=== PATIENT | male | born 1985 | race Caucasian/White ===

== ENCOUNTER 2017-11-08 21:38 | Emergency (ER) | payer OTHER ==
[2017-11-08 21:48] VITALS: TEMP 98.3
[2017-11-08] MEDS ORDERED: SODIUM CHLORIDE 0.9% 1,000 ML IV STA (22:38)
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
[2017-11-09 09:21] VITALS: BP 126/62; PULSE 117; RESP 18
== END 2017-11-09 09:20 | disposition home or self-care (01) ==
LOC: EC 21:38
DX: F10.120 Alcohol abuse with intoxication, uncomplicated (principal); R40.2412 Glasgow coma scale score 13-15, at arrival to emergency department; Y90.8 Blood alcohol level of 240 mg/100 ml or more
CPT/HCPCS: 82075; 96360; 99284

== ENCOUNTER 2018-05-16 13:00 | Emergency (ER) | payer OTHER ==
--- NOTE | 2018-05-16 22:30 | CT ---
EXAMINATION TYPE: CT angiography abdomen and pelvis with bilateral lower extremity runoff DATE OF EXAM: 05/16/2018 COMPARISON: None HISTORY: 22-year-old male left foot pain, numbness, and coldness after fall TECHNIQUE: Contiguous axial scanning of the abdomen and pelvis with bilateral lower extremity runoff before and after the administration of 100 mL of Isovue 370. Coronal/sagittal reconstructions perfor med. 3-D reconstructions generated on a dedicated independent workstation. CT DLP: 1912.8mGycm. Automatic exposure control utilized for a dose reduction. FINDINGS: Heart normal size without pericardial effusion. Lung bases clear without pleural effusion. Marked low attenuation of the liver with hepatomegaly at 21.2 cm. Portal venous system is patent. No biliary ductal dilatation. Mildly hydropic gallbladder at 4.1 cm wide but no wall thickening or surrounding inflammation, probab ly due to fasting state. Adrenal glands, kidneys, spleen, and pancreas appear within normal limits. Some scattered prominent mesenteric lymph nodes measure up to 7 mm, probably reactive/post inflammato ry. No dilated small bowel, free fluid, or free air. Normal appendix. Scattered mild stool. Circumferential thickening of the mid to distal sigmoid probably due to nondist ention. Correlation may be made to exclude any nonspecific colitis. Bladder urine distended. Platelets in the left side of the pelvis. No abnormal fluid collection in th e pelvis. Vasculature: Abdominal aorta is patent and normal caliber as are the iliac arteries. Right: Comminuted superficial as well as deep femoral arteries are patent. The popliteal artery is patent. The trifurcation vessels are patent though the peroneal artery become s diminutive at the distal third leg level. Left: The left common and deep femoral artery are patent. There is occlusion of the superficial femoral artery at the level of the adductor hiatus. Edematous change involving the deep musculature of the calf. No arterial flow identified within the l eg or left foot. Bones: Mild degenerative disc disease. No acute fracture identified. 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 Secondary asymmetric edema of the deep calf musculature on the left. No arterial flow is seen in the left popliteal artery or within the left calf or foot.
[2018-05-17 04:00] LABS: ALT 107 U/L (21-72); AST 346 U/L (17-59); Alkaline Phosphatase 99 U/L (38-126); Anion Gap 8 mmol/L; Blood Urea Nitrogen 11 mg/dL (9-20); Calcium 9.6 mg/dL (8.4-10.2); Carbon Dioxide 27 mmol/L (22-30); Chloride 99 mmol/L (98-107); Glucose 96 mg/dL (74-99); Potassium 4.8 mmol/L (3.5-5.1); Sodium 134 mmol/L (137-145); Total Bilirubin 1.9 mg/dL (0.2-1.3); Total Protein 6.8 g/dL (6.3-8.2)
[2018-05-17 05:46] LABS: Basophils % (A) 0 %; Eosinophils # (A) 0.1 k/uL (0-0.7); Eosinophils % (A) 1 %; Lymphocytes # (A) 1.6 k/uL (1.0-4.8); Lymphocytes % (A) 16 %; MCH 32.9 pg (25.0-35.0); MCHC 32.4 g/dL (31.0-37.0); MCV 101.7 fL (80.0-100.0); Macrocytosis Slight; Monocytes # (A) 0.7 k/uL (0-1.0); Monocytes % (A) 7 %; Neutrophils # (A) 7.7 k/uL (1.3-7.7); Neutrophils % (A) 75 %; Platelet Count 90 k/uL (150-450); RBC 5.94 m/uL (4.30-5.90); RDW 15.3 % (11.5-15.5); WBC 10.2 k/uL (3.8-10.6)
[2018-05-17 05:48] LABS: HGB 19.6 gm/dL (13.0-17.5)
[2018-05-17 05:51] LABS: HCT 60.5 % (39.0-53.0)
[2018-05-17 08:07] LABS: INR 1.4 (<1.2)
[2018-05-17 08:08] LABS: Partial Thromboplastin Time 38.4 sec (22.0-30.0)
== END 2018-05-16 16:10 | disposition other institution (70) ==
LOC: EC 13:00
DX: I70.202 Unspecified atherosclerosis of native arteries of extremities, left leg (principal); F17.200 Nicotine dependence, unspecified, uncomplicated; Z98.890 Other specified postprocedural states
CPT/HCPCS: 99285; 96374; 96375; 86900; 86901; 36415; 80053; 85025; 85610; 85730; 86850; 75635; Q9967

== ENCOUNTER 2022-03-23 11:25 | Emergency (ER) | payer OTHER, MEDICARE ==
[2022-03-23 12:00] VITALS: TEMP 98.3
[2022-03-23] MEDS ORDERED: LORazepam 0.5 MG TAB PO PRN (12:30)
[2022-03-23] MEDS ORDERED: THIAMINE 100 MG/ML 2 ML VIAL IM STA (12:30)
[2022-03-23] MEDS ORDERED: LORazepam 1 MG TAB PO PRN ×4 (12:30)
[2022-03-23] MEDS ORDERED: LORazepam 1 MG TAB PO STA (12:31)
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
--- NOTE | 2022-03-23 13:05 | CT ---
EXAMINATION TYPE: CT brain wo con CT DLP: 1173.2 mGycm, Automated exposure control for dose reduction was used. DATE OF EXAM: 03/23/2022 1:00 PM COMPARISON: None. CLINICAL INDICATION:Male, 36 years old with history of fall, on thinners, Fall on thinners TECHNIQUE: Brain: Axial CT images of the brain were obtained with coronal and sagittal reformats created and rev iewed. Contrast used: None. Oral contrast used: None. FINDINGS: Brain: Extra-axial spaces: No abnormal extra-axial fluid collections. Ventricular system: Within normal limits Cerebral parenchyma: No acute intraparenchymal hemorrhage or mass effect. The franklin-white junction is well differentiated. Cerebellum: Unremarkable. Mass effect: No evidence of midline shift. Intracranial vasculature: unremarkable Soft tissues: Normal. Calvarium/osseous structures: No depressed skull fracture. Paranasal sinuses and mastoid air cells: Mild scattered paranasal sinus disease. Visualized orbits: Orbital contents are intact. 22 IMPRESSION: No acute intracranial process.
[2022-03-23 19:18] VITALS: BP 122/84; PULSE 102; RESP 18
[2022-03-24] MEDS ORDERED: THIAMINE 100 MG TAB PO SCH (09:00)
== END 2022-03-23 19:23 | disposition home or self-care (01) ==
LOC: EC 11:25
DX: Z00.8 Encounter for other general examination (principal); F17.200 Nicotine dependence, unspecified, uncomplicated; F12.90 Cannabis use, unspecified, uncomplicated
CPT/HCPCS: 99285; 82075; 70450; 96372; J3411

== ENCOUNTER 2022-12-01 12:44 | Emergency (ER) | payer MEDICARE, OTHER ==
[2022-12-01] MEDS ORDERED: SODIUM CHLORIDE 0.9% 1,000 ML IV STA (13:02)
--- NOTE | 2022-12-01 13:14 | ED ---
General Adult HPI - General Chief complaint: Extremity Problem,Nontraumatic Stated complaint: Right leg pain Time Seen by Provider: 12/01/22 12:55 Source: patient, RN notes reviewed Mode of arrival: wheelchair Limitations: no limitations - History of Present Illness Initial comments: 37-year-old male presents emergency Department chief complaint of right leg pain. 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 Patient is currently on Xarelto and has not missed any doses. He started complaining of right leg pain, swelling and right knee pain. He states that his knee is very sore and feels unstable. Denies any trauma denies any rashes. Patient's had no fevers or chills no other associated complaints. - Related Data Home Medications Medication Instructions Recorded Confirmed Gabapentin [Neurontin] 300 mg PO BID PRN 03/23/22 03/23/22 HYDROcodone/APAP 7.5-325MG [[place] 1 tab PO Q6HR PRN 03/23/22 03/23/22 7.5-325] Rivaroxaban [Xarelto] 20 mg PO DAILY 03/23/22 03/23/22 Allergies Allergy/AdvReac Type Severity Reaction Status Date / Time No Known Allergies Allergy Verified 03/23/22 12:00 Review of Systems ROS Statement: Those systems with pertinent positive or pertinent negative responses have been documented in the HPI. ROS Other: All systems not noted in ROS Statement are negative. 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 Absent: scleral icterus, conjunctival injection, periorbital swelling ENT exam: Present: normal exam, normal oropharynx, mucous membranes moist Neck exam: Present: normal inspection, full ROM. Absent: tenderness, meningismus, lymphadenopathy Respiratory exam: Present: normal lung sounds bilaterally. Absent: respiratory distress, wheezes, rales, rhonchi, stridor Cardiovascular Exam: Present: regular rate, normal rhythm, normal heart sounds. Absent: systolic murmur, diastolic murmur, rubs, gallop, clicks GI/Abdominal exam: Present: soft, normal bowel sounds. Absent: distended, tenderness, guarding, rebound, rigid Extremities exam: Present: other (Right leg there is mild edema noted, pulses are palpable unable compared to left leg no significant erythema or skin color changes noted) Course Vital Signs 12/01/22 12:47 Temperature 989 F H Pulse Rate 79 Respiratory 16 Rate Blood Pressure 155/92 O2 Sat by Pulse 96 Oximetry Medical Decision Making - Medical Decision Making Was pt. sent in by a medical professional or institution (, [facility], RN FIELD, urgent care, hospital, or custodial...) When possible be specific @ -No Did you speak to anyone other than the patient for history (EMS, parent, family, police, friend...)? What history was obtained from this source @ -No Did you review nursing and triage notes (agree or disagree)? Why? @ -I reviewed and agree with nursing and triage notes Were old charts reviewed (outside hosp., previous admission, EMS record, old EKG, old radiological studies, urgent care reports/EKG's, custodial records)? Report findings @ -No old charts were reviewed Differential Diagnosis (chest pain, altered mental status, abdominal pain women, abdominal pain men, vaginal bleeding, weakness, fever, dyspnea, syncope, headache, dizziness, GI bleed, back pain, seizure, CVA, palpatations, mental health, musculoskeletal)? @ -DVT, leg pain, knee strain EKG interpreted by me (3pts min.). @ -None X-rays interpreted by me (1pt min.). @ -X-ray right knee no acute fracture dislocation CT interpreted by me (1pt min.). @ -None done U/S interpreted by me (1pt. min.). @ -Old son right leg is negative for acute DVT What testing was considered but not performed or refused? (CT, X-rays, U/S, labs)? Why? @ -None What meds were considered but not given or refused? Why? @ -None Did you discuss the management of the patient with other professionals (professionals i.e. , PA, RN FIELD, lab, RT, psych nurse, geriatric social worker, crop supervisor, teacher, guest relations officer, case monitor)? Give summary @ -No Was smoking cessation discussed for >3mins.? @ -No Was critical care preformed (if so, how long)? @ -No Were there social determinants of health that impacted care today? How? (Homelessness, low income, unemployed, alcoholism, drug addiction, transportation, low edu. Level, literacy, decrease access to med. care, [facility], rehab)? @ -No Was there de-escalation of care discussed even if they declined (Discuss DNR or withdrawal of care, Hospice)? DNR status @ -No What co-morbidities impacted this encounter? (DM, HTN, Smoking, COPD, CAD, Cancer, CVA, ARF, Chemo, Hep., AIDS, mental health diagnosis, sleep apnea, morbid obesity)? @ -None Was patient admitted / discharged? Hospital course, mention meds given and route, prescriptions, significant lab abnormalities, going to OR and other pertinent info. @ -Discharge patient has right leg pain with no acute findings patient may have right knee strain Timmy wrap was placed. Patient discharged in stable condition lab troponin is unremarkable. Pulses are palpable Undiagnosed new problem with uncertain prognosis? @ -No Drug Therapy requiring intensive monitoring for toxicity (Heparin, Nitro, Insulin, Cardizem)? @ -No Were any procedures done? @ -No Diagnosis/symptom? @ -Right leg pain] Acute, or Chronic, or Acute on Chronic? @ -Acute Uncomplicated (without systemic symptoms) or Complicated (systemic symptoms)? @ -Uncomplicated Side effects of treatment? @ -No Exacerbation, Progression, or Severe Exacerbation? @ -No Poses a threat to life or bodily function? How? (Chest pain, USA, ID, pneumonia, PE, COPD, DKA, ARF, appy, cholecystitis, CVA, Diverticulitis, Homicidal, Suicidal, threat to staff... and all critical care pts) @ -No - Lab Data Result diagrams: 12/01/22 13:27 12/01/22 13:27 Lab Results 12/01/22 12/01/22 12/01/22 Range/Units 13: 13: 13:27 WBC 4.0 (3.8-10.6) k/uL RBC 4.69 (4.30-5.90) m/uL Hgb 16.8 (13.0-17.5) gm/dL Hct 49.5 (39.0-53.0) % MCV 105.5 H (80.0-100.0) fL MCH 35.9 H (25.0-35.0) pg MCHC 34.0 (31.0-37.0) g/dL RDW 15.5 (11.5-15.5) % Plt Count 137 L (150-450) k/uL MPV 9.2 Neutrophils % 63 % Lymphocytes % 26 % Monocytes % 8 % Eosinophils % 2 % Basophils % 1 % Neutrophils # 2.5 (1.3-7.7) k/uL Lymphocytes # 1.0 (1.0-4.8) k/uL Monocytes # 0.3 (0-1.0) k/uL Eosinophils # 0.1 (0-0.7) k/uL Basophils # 0.0 (0-0.2) k/uL Macrocytosis Moderate Sodium 137 (137-145) mmol/L Potassium 3.7 (3.5-5.1) mmol/L Chloride 104 (98-107) mmol/L Carbon Dioxide 26 (22-30) mmol/L Anion Gap 7 mmol/L BUN 7 L (9-20) mg/dL Creatinine 0.62 L (0.66-1.25) mg/dL Est GFR (CKD-EPI)AfAm >90 (>60 ml/min/1.73 sqM) Est GFR (CKD-EPI)NonAf >90 (>60 ml/min/1.73 sqM) Glucose 97 (74-99) mg/dL Plasma Lactic Acid Octavio 1.1 (0.7-2.0) mmol/L Calcium 9.3 (8.4-10.2) mg/dL Total Bilirubin 1.2 (0.2-1.3) mg/dL AST 37 (17-59) U/L ALT 21 (4-49) U/L Alkaline Phosphatase 101 (38-126) U/L Total Protein 6.8 (6.3-8.2) g/dL Albumin 3.8 (3.5-5.0) g/dL Lipase 58 (23-300) U/L Disposition Clinical Impression: Right leg pain Disposition: HOME SELF-CARE Condition: Stable Instructions (If sedation given, give patient instructions): Leg Pain (ED) Additional Instructions: Please return to the Emergency Department if symptoms worsen or any other concerns. Is patient prescribed a controlled substance at d/c from ED?: No Referrals: Eulalio Peña MD [Primary Care Provider] - 1-2 days Carlos Eduardo Rider MD [STAFF PHYSICIAN] - 1-2 days Time of Disposition: 15:55
[2022-12-01 13:35] LABS: Basophils % (A) 1 %; Eosinophils # (A) 0.1 k/uL (0-0.7); Eosinophils % (A) 2 %; HCT 49.5 % (39.0-53.0); HGB 16.8 gm/dL (13.0-17.5); Lymphocytes % (A) 26 %; MCH 35.9 pg (25.0-35.0); MCV 105.5 fL (80.0-100.0); Macrocytosis Moderate; Mean Platelet Volume 9.2; Monocytes # (A) 0.3 k/uL (0-1.0); Monocytes % (A) 8 %; Neutrophils # (A) 2.5 k/uL (1.3-7.7); Neutrophils % (A) 63 %; Platelet Count 137 k/uL (150-450); RBC 4.69 m/uL (4.30-5.90); RDW 15.5 % (11.5-15.5)
[2022-12-01 13:53] LABS: ALT 21 U/L (4-49); AST 37 U/L (17-59); African American GFR (CKD) >90 (>60 ml/min/1.73 sqM); Albumin 3.8 g/dL (3.5-5.0); Alkaline Phosphatase 101 U/L (38-126); Anion Gap 7 mmol/L; Blood Urea Nitrogen 7 mg/dL (9-20); Calcium 9.3 mg/dL (8.4-10.2); Carbon Dioxide 26 mmol/L (22-30); Chloride 104 mmol/L (98-107); Glucose 97 mg/dL (74-99); Lipase 58 U/L (23-300); Non-African American GFR(CKD) >90 (>60 ml/min/1.73 sqM); Potassium 3.7 mmol/L (3.5-5.1); Sodium 137 mmol/L (137-145); Total Bilirubin 1.2 mg/dL (0.2-1.3); Total Protein 6.8 g/dL (6.3-8.2)
--- NOTE | 2022-12-01 13:54 | XR ---
EXAMINATION TYPE: XR knee complete RT DATE OF EXAM: 12/01/2022 CLINICAL HISTORY: pain TECHNIQUE: Three views of the right knee are obtained. COMPARISON: None. FINDINGS: There is no acute fracture/dislocation. The tri-compartment joint spaces appear within no rmal limits. The overlying soft tissue appears unremarkable. IMPRESSION: There is no acute fracture or dislocation.ICD 10 NO FRACTURE, INITIAL EVALUATION
--- NOTE | 2022-12-01 14:50 | US ---
EXAMINATION TYPE: US venous doppler duplex LE RT DATE OF EXAM: 12/01/2022 2:06 PM COMPARISON: NONE CLINICAL INDICATION: Male, 37 years old with history of pain; Pain in right leg x 2 days. Hx PE, brittany ent is on Xarelto. SIDE PERFORMED: Right TECHNIQUE: The lower extremity deep venous system is examined utilizing real time linear array sonog gibran with graded compression, doppler sonography and color-flow sonography. VESSELS IMAGED: Common Femoral Vein Deep Femoral Vein Greater Saphenous Vein * Femoral Vein Popliteal Vein Small Saphenous Vein * Proximal Calf Veins (* superficial vessels) Right Leg: No evidence of DVT. IMPRESSION: No evidence for DVT at this time.
[2022-12-01 16:43] VITALS: BP 132/82; PULSE 77; RESP 19; TEMP 98.8
== END 2022-12-01 16:43 | disposition home or self-care (01) ==
LOC: EC 12:44
DX: M25.561 Pain in right knee (principal); F17.200 Nicotine dependence, unspecified, uncomplicated; F12.90 Cannabis use, unspecified, uncomplicated; Z86.718 Personal history of other venous thrombosis and embolism; Z79.01 Long term (current) use of anticoagulants; Z79.899 Other long term (current) drug therapy
CPT/HCPCS: 36415; 80053; 83605; 83690; 85025; 96360; 99284

== ENCOUNTER 2024-07-15 17:22 | Emergency (ER) | payer MEDICARE, OTHER ==
[2024-07-15 17:35] VITALS: TEMP 98.4
--- NOTE | 2024-07-15 17:57 | ED ---
General Adult HPI - General Chief complaint: Extremity Problem,Nontraumatic Stated complaint: R leg pain Time Seen by Provider: 07/15/24 17:57 Source: patient Mode of arrival: ambulatory Limitations: no limitations - History of Present Illness Initial comments: Elliot is a 39-year-old male who presents to the emergency department today via private vehicle for evaluation of pain in the right leg. Patient reports that he has a history of amputation of the left leg after he had what he thought was a hyperextension injury of the knee resulting in a clot in the leg and subsequent amputation. Patient states that last week he was and felt the same aching pain in his leg as before, patient states he has become concerned that he can have another clot and decided come to get checked out. He is currently prescribed Xarelto but is noncompliant with this. - Related Data Home Medications Medication Instructions Recorded Confirmed Gabapentin [Neurontin] 300 mg PO BID PRN 03/23/22 03/23/22 HYDROcodone/APAP 7.5-325MG [[place] 1 tab PO Q6HR PRN 03/23/22 03/23/22 7.5-325] Rivaroxaban [Xarelto] 20 mg PO DAILY 03/23/22 03/23/22 Allergies Allergy/AdvReac Type Severity Reaction Status Date / Time No Known Allergies Allergy Verified 07/15/24 17:35 Review of Systems ROS Statement: Those systems with pertinent positive or pertinent negative responses have been documented in the HPI. ROS Other: All systems not noted in ROS Statement are negative. 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 Patient is nontoxic and well-hydrated and is in no distress. HENT: Normocephalic, Atraumatic. EYES: PERRL, EOMI PULMONARY: Unlabored respirations. CARDIOVASCULAR: RRR Warm and well perfused extremities ABDOMEN: Non-distended SKIN: No rashes or bruising : Deferred NEUROLOGIC: Alert and oriented MUSCULOSKELETAL: Left above-knee amputation Right lower extremity is warm well-perfused with no edema PSYCHIATRIC: No SI/HI Limitations: no limitations Course Vital Signs 07/15/24 07/15/24 17:28 20:46 Temperature 98.4 F 98.4 F Pulse Rate 99 80 Respiratory 17 18 Rate Blood Pressure 137/90 122/86 O2 Sat by Pulse 97 100 Oximetry Medical Decision Making - Medical Decision Making Was pt. sent in by a medical professional or institution (WARREN Felix, ADVANCED DEVELOPER, urgent care, hospital, or shelter...) When possible be specific @ -No Did you speak to anyone other than the patient for history (EMS, parent, family, police, friend...)? What history was obtained from this source @ -No Did you review nursing and triage notes (agree or disagree)? Why? @ -I reviewed and agree with nursing and triage notes Were old charts reviewed (outside hosp., previous admission, EMS record, old EKG, old radiological studies, urgent care reports/EKG's, shelter records)? Report findings @ -No old charts were reviewed Differential Diagnosis (chest pain, altered mental status, abdominal pain women, abdominal pain men, vaginal bleeding, weakness, fever, dyspnea, syncope, headache, dizziness, GI bleed, back pain, seizure, CVA, palpatations, mental health)? @ -muscle strain, DVT, EKG interpreted by me (3pts min.). @ -As above X-rays interpreted by me (1pt min.). @ -None done CT interpreted by me (1pt min.). @ -None done U/S interpreted by me (1pt. min.). @ -No large DVT What testing was considered but not performed or refused? (CT, X-rays, U/S, labs)? Why? @ -None What meds were considered but not given or refused? Why? @ -None Did you discuss the management of the patient with other professionals (professionals i.e. WARREN Felix, ADVANCED DEVELOPER, lab, RT, psych nurse, social security assessor, basket patcher, teacher, traffic officer, casework specialist)? Give summary @ -No Was smoking cessation discussed for >3mins.? @ -No Was critical care preformed (if so, how long)? @ -No Were there social determinants of health that impacted care today? How? (Homelessness, low income, unemployed, alcoholism, drug addiction, transportation, low edu. Level, literacy, decrease access to med. care, nursing home, rehab)? @ -Low income, unemployed, alcoholism Was there de-escalation of care discussed even if they declined (Discuss DNR or withdrawal of care, Hospice)? DNR status @ -No What co-morbidities impacted this encounter? (DM, HTN, Smoking, COPD, CAD, Ca ncer, CVA, ARF, Chemo, Hep., AIDS, mental health diagnosis, sleep apnea, morbid obesity)? @ -None Was patient admitted / discharged? Hospital course, mention meds given and route, prescriptions, significant lab abnormalities, going to OR and other pertinent info. @ -Discharged The patient was seen and evaluated, history is obtained from the patient. The leg was warm and well-perfused no concern for arterial occlusion or PAD. Ultrasound was obtained and there was no evidence of DVT. Patient was stable for discharge home and continued use of his Xarelto due to previous clots and follow-up with primary care. The patient was seen and evaluated, history is obtained from the patient Undiagnosed new problem with uncertain prognosis? @ -No Drug Therapy requiring intensive monitoring for toxicity (Heparin, Nitro, Insulin, Cardizem)? @ -No Were any procedures done? @ -No Diagnosis/symptom? @ -Leg pain Acute, or Chronic, or Acute on Chronic? @ -Acute Uncomplicated (without systemic symptoms) or Complicated (systemic symptoms)? @ -Default Side effects of treatment? @ -No Exacerbation, Progression, or Severe Exacerbation? @ -No Poses a threat to life or bodily function? How? (Chest pain, [place], [place], pneumonia, PE, COPD, DKA, ARF, appy, cholecystitis, CVA, Diverticulitis, Homicidal, Suicidal, threat to staff... and all critical care pts) @ -Unlikely Disposition Clinical Impression: Right leg pain Disposition: HOME SELF-CARE Condition: Stable Additional Instructions: Your ultrasound today was negative for evidence of any blood clots, continue taking your prescribed xarelto and follow up with your primary care provider Is patient prescribed a controlled substance at d/c from ED?: No Referrals: Eulalio Peña MD [Primary Care Provider] - 1-2 days
--- NOTE | 2024-07-15 19:38 | US ---
EXAMINATION TYPE: US venous doppler duplex LE RT DATE OF EXAM: 07/15/2024 7:25 PM COMPARISON: US 12/01/2022 CLINICAL INDICATION: Male, 39 years old with history of pain, hx of clot in left resulting in amputat ion; patient states hx of clot in left leg that is now amputated. hx PE. On thinners. Pain in distal thigh and calf, no swelling, Pain TECHNIQUE: The lower extremity deep venous system is examined utilizing real time linear array sonog gibran with graded compression, color doppler sonography, and spectral doppler. SIDE PERFORMED: Right FINDINGS: VESSELS IMAGED: Common Femoral Vein Deep Femoral Vein Greater Saphenous Vein * Femoral Vein Popliteal Vein Small Saphenous Vein * Proximal Calf Veins (* superficial vessels) Right Leg: Negative for DVT, Color Doppler imaging shows patency of the vessels. Spectral waveforms are within normal limits. IMPRESSION: No ultrasound evidence for deep venous thrombosis. [facility], , 07/15/2024 7:36 PM
[2024-07-15] MEDS: ACETAMINOPHEN TAB 500 MG TAB PO STA (20:33)
[2024-07-15 20:47] VITALS: BP 122/86; PULSE 80; RESP 18
== END 2024-07-15 20:55 | disposition home or self-care (01) ==
LOC: EC 17:22
DX: M79.604 Pain in right leg (principal); F17.200 Nicotine dependence, unspecified, uncomplicated; Z79.01 Long term (current) use of anticoagulants
CPT/HCPCS: 99284

== ENCOUNTER 2024-10-08 14:55 | Observation (INO) | payer MEDICARE, OTHER ==
--- NOTE | 2024-10-08 15:36 | ED ---
Alcohol HPI - General Chief Complaint: Alcohol Stated Complaint: Withdrawal/detox Time Seen by Provider: 10/08/24 15:10 Source: patient, family, RN notes reviewed Mode of arrival: wheelchair Limitations: no limitations - History of Present Illness Initial Comments: 39-year-old male presenting to the emergency department for alcohol abuse and concerns for alcohol withdrawal. Patient states that he was sober for 60 days however over the past few weeks he has been drinking over a pint of alcohol per day. He states that his last drink was prior to arrival in the emergency department. Patient states that he feels okay right now and is denying headach es, anxiety or nausea. Patient is scheduled for inpatient rehab on Friday with [facility]. - Related Data Home Medications Medication Instructions Recorded Confirmed Gabapentin [Neurontin] 300 mg PO BID PRN 03/23/22 03/23/22 HYDROcodone/APAP 7.5-325MG [[place] 1 tab PO Q6HR PRN 03/23/22 03/23/22 7.5-325] Rivaroxaban [Xarelto] 20 mg PO DAILY 03/23/22 03/23/22 Allergies Allergy/AdvReac Type Severity Reaction Status Date / Time No Known Allergies Allergy Verified 10/08/24 15:20 Review of Systems ROS Statement: Those systems with pertinent positive or pertinent negative responses have been documented in the HPI. ROS Other: All systems not noted in ROS Statement are negative. Past Medical History Past Medical History: No Reported History Additional Past Medical History / Comment(s): dvt pvd History of Any Multi-Drug Resistant Organisms: None Reported Past Surgical History: Orthopedic Surgery Additional Past Surgical History / Comment(s): AKA left leg Past Psychological History: No Psychological Hx Reported Smoking Status: Current every day smoker Past Alcohol Use History: Abuse, Daily, Heavy Past Drug Use History: Marijuana General Exam Limitations: no limitations General appearance: alert, in no apparent distress, appears intoxicated ENT exam: Present: normal exam, mucous membranes moist Neck exam: Present: normal inspection. Absent: tenderness, meningismus, lymphadenopathy Respiratory exam: Present: normal lung sounds bilaterally. Absent: respiratory distress, wheezes, rales, rhonchi, stridor Cardiovascular Exam: Present: regular rate, normal rhythm, normal heart sounds. Absent: systolic murmur, diastolic murmur, rubs, gallop, clicks GI/Abdominal exam: Present: soft, normal bowel sounds. Absent: distended, tenderness, guarding, rebound, rigid Extremities exam: Present: normal inspection, full ROM, normal capillary refill. Absent: tenderness, pedal edema, joint swelling, calf tenderness Course Vital Signs 10/08/24 10/08/24 10/08/24 15:15 16:05 18:06 Temperature 98.6 F Pulse Rate 105 H 97 91 Respiratory 20 17 18 Rate Blood Pressure 144/77 134/93 134/82 O2 Sat by Pulse 94 L 97 95 Oximetry Medical Decision Making - Medical Decision Making Was pt. sent in by a medical professional or institution (, WARREN, COUNTRY DIRECTOR, urgent care, hospital, or assisted...) When possible be specific @ -No Did you speak to anyone other than the patient for history (EMS, parent, family, police, friend...)? What history was obtained from this source @ -No Did you review nursing and triage notes (agree or disagree)? Why? @ -I reviewed and agree with nursing and triage notes Were old charts reviewed (outside hosp., previous admission, EMS record, old EKG, old radiological studies, urgent care reports/EKG's, assisted records)? Report findings @ -No old charts were reviewed Differential Diagnosis (chest pain, altered mental status, abdominal pain women, abdominal pain men, vaginal bleeding, weakness, fever, dyspnea, syncope, headache, dizziness, GI bleed, back pain, seizure, CVA, palpatations, mental health, musculoskeletal)? @ -Alcohol abuse, alcohol intoxication, alcohol withdrawal, electrolyte abnormality, this list is not all inclusive EKG interpreted by me (3pts min.). @ -Completed at 1525 sinus tachycardia with a ventricular rate of 102, IL interval 104, QRS 96, QT 335, QTc 394. X-rays interpreted by me (1pt min.). @ -None done CT interpreted by me (1pt min.). @ -None done U/S interpreted by me (1pt. min.). @ -None done What testing was considered but not performed or refused? (CT, X-rays, U/S, labs)? Why? @ -None What meds were considered but not given or refused? Why? @ -None Did you discuss the management of the patient with other professionals (professionals i.e. Dr., PA, COUNTRY DIRECTOR, lab, RT, psych nurse, older adult social work specialist, motor vehicle operator road supervisor, teacher, youth probation officer, piano case maker)? Give summary @ -I spoke with patient's primary care provider, Dr. Peña, was agreed to meet the patient for alcohol withdrawal. Was smoking cessation discussed for >3mins.? @ -No Was critical care preformed (if so, how long)? @ -No Were there social determinants of health that impacted care today? How? (Homelessness, low income, unemployed, alcoholism, drug addiction, transportation, low edu. Level, literacy, decrease access to med. care, custodial, re hab)? @ -No Was there de-escalation of care discussed even if they declined (Discuss DNR or withdrawal of care, Hospice)? DNR status @ -No What co-morbidities impacted this encounter? (DM, HTN, Smoking, COPD, CAD, Cancer, CVA, ARF, Chemo, Hep., AIDS, mental health diagnosis, sleep apnea, morbid obesity)? @ -None Was patient admitted / discharged? Hospital course, mention meds given and route, prescriptions, significant lab abnormalities, going to OR and other pertinent info. @ -Admitted. 39-year-old male presenting for alcohol abuse and withdrawal. On questioning patient appears to be intoxicated. Patient serum alcohol is up to 69 correlating with a timed [place] ~10 hours past. With patient's history of alcohol withdrawal seizures and DTs he will be admitted placed on CIWA protocol. Case discussed with my attending Dr. Manzano. Patient is admitted to Dr. Peña Undiagnosed new problem with uncertain prognosis? @ -No Drug Therapy requiring intensive monitoring for toxicity (Heparin, Nitro, Insulin, Cardizem)? @ -No Were any procedures done? @ -No Diagnosis/symptom? @ -alcohol abuse, alcohol withdrawl Acute, or Chronic, or Acute on Chronic? @ -acute Uncomplicated (without systemic symptoms) or Complicated (systemic symptoms)? @ -complicated Side effects of treatment? @ -No Exacerbation, Progression, or Severe Exacerbation? @ -No Poses a threat to life or bodily function? How? (Chest pain, [place], [place], pneumonia, PE, COPD, DKA, ARF, appy, cholecystitis, CVA, Diverticulitis, Homicidal, Suicidal, threat to staff... and all critical care pts) @ -No - Lab Data Result diagrams: 10/08/24 16:02 10/08/24 16:02 Lab Results 10/08/24 10/08/24 Range/Units 16:02 16:02 WBC 7.28 (4.50-10.00) 10*3/uL RBC 4.58 (4.40-5.60) 10*6/uL Hgb 14.7 (13.0-17.0) g/dL Hct 42.2 (39.6-50.0) % MCV 92.1 (80.0-97.0) fL MCH 32.1 H (27.0-32.0) pg MCHC 34.8 (32.0-37.0) g/dL Plt Count 190 (140-440) 10*3/uL MPV 11.4 (9.5-12.2) fL Immature Gran % (Auto) 0.3 % Neutrophils % 39.1 % Lymphocytes % 49.0 % Monocytes % 9.3 % Eosinophils % 0.8 % Basophils % 1.5 % Immature Gran # 0.02 (0.00-0.04) 10*3/uL Neutrophils # 2.84 (1.80-7.70) 10*3/uL Lymphocytes # 3.57 (0.90-5.00) 10*3/uL Monocytes # 0.68 (0.20-1.00) 10*3/uL Eosinophils # 0.06 (0.04-0.35) 10*3/uL Basophils # 0.11 H (0.00-0.10) 10*3/uL Sodium 143 (137-145) mmol/L Potassium 4.0 (3.5-5.1) mmol/L Chloride 105 (98-107) mmol/L Carbon Dioxide 26 (22-30) mmol/L Anion Gap 12 mmol/L BUN 19 (9-20) mg/dL Creatinine 0.96 (0.66-1.25) mg/dL Est GFR (CKD-EPI)AfAm >90 (>60 ml/min/1.73 sqM) Est GFR (CKD-EPI)NonAf >90 (>60 ml/min/1.73 sqM) Glucose 110 H (74-99) mg/dL Calcium 9.2 (8.4-10.2) mg/dL Phosphorus 3.6 (2.5-4.5) mg/dL Magnesium 2.0 (1.6-2.3) mg/dL Total Bilirubin 1.0 (0.2-1.3) mg/dL AST 194 H (17-59) U/L ALT 230 H (4-49) U/L Alkaline Phosphatase 69 (38-126) U/L Total Protein 6.9 (6.3-8.2) g/dL Albumin 4.5 (3.5-5.0) g/dL Lipase 148 (23-300) U/L Serum Alcohol 269 H* mg/dL Disposition Clinical Impression: Alcohol abuse, Alcohol withdrawal Disposition: ADMITTED IP TO THIS [facility] Condition: Serious Referrals: Eulalio Peña MD [Primary Care Provider] - 1-2 days Decision to Admit Reason: Admit from EC Decision Date: 10/08/24 Decision Time: 17:40
[2024-10-08] MEDS: ONDANSETRON 4 MG/2 ML VIAL IVP STA (16:11)
[2024-10-08] MEDS: SODIUM CHLORIDE 0.9% 1,000 ML IV STA (16:11)
[2024-10-08 16:23] LABS: Basophils # (A) 0.11 10*3/uL (0.00-0.10); Basophils % (A) 1.5 %; Eosinophils # (A) 0.06 10*3/uL (0.04-0.35); Eosinophils % (A) 0.8 %; HCT 42.2 % (39.6-50.0); HGB 14.7 g/dL (13.0-17.0); Lymphocytes # (A) 3.57 10*3/uL (0.90-5.00); MCH 32.1 pg (27.0-32.0); MCHC 34.8 g/dL (32.0-37.0); MCV 92.1 fL (80.0-97.0); Mean Platelet Volume 11.4 fL (9.5-12.2); Monocytes # (A) 0.68 10*3/uL (0.20-1.00); Monocytes % (A) 9.3 %; Neutrophils # (A) 2.84 10*3/uL (1.80-7.70); Neutrophils % (A) 39.1 %; Platelet Count 190 10*3/uL (140-440); RBC 4.58 10*6/uL (4.40-5.60); RDW 13.6 % (11.5-14.5); WBC 7.28 10*3/uL (4.50-10.00)
[2024-10-08 16:47] LABS: ALT 230 U/L (4-49); AST 194 U/L (17-59); African American GFR (CKD) >90 (>60 ml/min/1.73 sqM); Albumin 4.5 g/dL (3.5-5.0); Alkaline Phosphatase 69 U/L (38-126); Anion Gap 12 mmol/L; Blood Urea Nitrogen 19 mg/dL (9-20); Calcium 9.2 mg/dL (8.4-10.2); Carbon Dioxide 26 mmol/L (22-30); Chloride 105 mmol/L (98-107); Glucose 110 mg/dL (74-99); Lipase 148 U/L (23-300); Non-African American GFR(CKD) >90 (>60 ml/min/1.73 sqM); Phosphorus 3.6 mg/dL (2.5-4.5); Sodium 143 mmol/L (137-145); Total Protein 6.9 g/dL (6.3-8.2)
[2024-10-08 16:53] LABS: Alcohol 269 mg/dL
[2024-10-08] MEDS ORDERED: NALOXONE 0.4 MG/ML 1 ML VIAL IV PRN (17:39)
[2024-10-08] MEDS ORDERED: LORazepam 1 MG TAB PO PRN ×2 (17:40)
[2024-10-08] MEDS ORDERED: LORazepam 1 MG/0.5 ML VIAL IV PRN ×2 (17:40)
[2024-10-08] MEDS: LORazepam 1 MG/0.5 ML VIAL IV PRN (21:15)
[2024-10-08] MEDS: IBUPROFEN 400 MG TAB PO PRN (22:19)
--- NOTE | 2024-10-09 01:02 | XR ---
EXAM: XR Right Hand Complete, 3 or More Views CLINICAL HISTORY: ITS.REASON XR Reason: pain TECHNIQUE: Frontal, lateral and oblique views of the right hand. COMPARISON: No relevant prior studies available. FINDINGS: Bones/joints: Unremarkable. No acute fracture. No dislocation. Soft tissues: Unremarkable. No radiopaque foreign body. IMPRESSION: No acute fracture.
[2024-10-09] MEDS: ONDANSETRON 4 MG/2 ML VIAL IVP PRN (06:52)
[2024-10-09] MEDS: PANTOPRAZOLE 40 MG/10 ML VIAL IV SCH (08:22)
[2024-10-09 08:26] LABS: Basophils # (A) 0.09 10*3/uL (0.00-0.10); Basophils % (A) 1.2 %; Eosinophils # (A) 0.14 10*3/uL (0.04-0.35); Eosinophils % (A) 1.9 %; HCT 39.4 % (39.6-50.0); HGB 13.2 g/dL (13.0-17.0); Lymphocytes # (A) 2.77 10*3/uL (0.90-5.00); Lymphocytes % (A) 38.3 %; MCH 31.6 pg (27.0-32.0); MCHC 33.5 g/dL (32.0-37.0); MCV 94.3 fL (80.0-97.0); Mean Platelet Volume 11.7 fL (9.5-12.2); Monocytes # (A) 0.71 10*3/uL (0.20-1.00); Monocytes % (A) 9.8 %; Neutrophils # (A) 3.51 10*3/uL (1.80-7.70); Neutrophils % (A) 48.7 %; Platelet Count 137 10*3/uL (140-440); RBC 4.18 10*6/uL (4.40-5.60); RDW 13.6 % (11.5-14.5); WBC 7.23 10*3/uL (4.50-10.00)
[2024-10-09 08:34] LABS: ALT 212 U/L (4-49); AST 170 U/L (17-59); African American GFR (CKD) >90 (>60 ml/min/1.73 sqM); Albumin 3.7 g/dL (3.5-5.0); Albumin/Globulin Ratio 1.8; Alkaline Phosphatase 61 U/L (38-126); Anion Gap 9 mmol/L; Blood Urea Nitrogen 21 mg/dL (9-20); Calcium 8.3 mg/dL (8.4-10.2); Carbon Dioxide 24 mmol/L (22-30); Chloride 108 mmol/L (98-107); Globulin 2.1 g/dL; Glucose 85 mg/dL (74-99); Non-African American GFR(CKD) >90 (>60 ml/min/1.73 sqM); Potassium 3.8 mmol/L (3.5-5.1); Sodium 141 mmol/L (137-145); Total Bilirubin 1.1 mg/dL (0.2-1.3); Total Protein 5.8 g/dL (6.3-8.2)
[2024-10-09] MEDS: LORazepam 1 MG TAB PO PRN (09:42)
[2024-10-09] MEDS: FOLIC ACID 1 MG TAB PO SCH (15:49)
[2024-10-09] MEDS: MULTIVITAMINS, THERA 1 EACH TAB PO SCH (15:49)
[2024-10-09] MEDS: THIAMINE 100 MG TAB PO SCH (15:49)
[2024-10-09] MEDS: HYDROcodone/APAP 7.5-325MG 1 EACH TAB PO PRN (15:53)
[2024-10-09] MEDS: LORazepam 0.5 MG TAB PO PRN (20:21)
[2024-10-09] MEDS: GABAPENTIN 300 MG CAP PO SCH (20:21)
[2024-10-09] MEDS: MIRTAZAPINE 15 MG TAB PO SCH (20:21)
--- NOTE | 2024-10-09 22:17 | HP ---
HISTORY AND PHYSICAL ADMITTING SUMMARY CHIEF COMPLAINT: Acute alcohol intoxication, chronic alcoholism and DTs. HISTORY OF PRESENT ILLNESS: This 39-year-old gentleman is admitted to the hospital for detox. He is scheduled to go to [place] on Friday for inpatient management. REVIEW OF SYSTEMS: He denies vomiting, seizures, blackouts, chest pain, abdominal pain, etc. Past medical history, family history, personal and social histories are otherwise unremarkable. He has had loss of the lower extremity due to an ischemic event. He smokes a pack of cigarettes a day. ALLERGIES: He is not allergic to any medication. MEDICATIONS: Include; 1. Xarelto. 2. Atorvastatin. 3. Vitamin D. 4. Gabapentin. 5. Vicodin. PHYSICAL EXAMINATION: VITAL SIGNS: Normal. HEAD, EARS, EYES, NOSE, MOUTH AND THROAT: Normal. CHEST: Clear. CARDIAC: Normal. ABDOMEN: Soft and nontender. EXTREMITIES: Normal. IMPRESSION: 1. Chronic alcoholism. 2. Impending DTs. 3. Acute alcohol intoxication. 4. Nicotine abuse. 5. Status post left leg amputation. PLAN: 1. Bedrest. 2. CIWA protocol. 3. Discharge to [place] on Friday. MMODL / IJN: [id number] /
[2024-10-10] MEDS: RIVAROXABAN 20 MG TAB PO SCH (12:09)
[2024-10-10 22:07] VITALS: RESP 18
--- NOTE | 2024-10-10 22:15 | PN ---
PROGRESS NOTE DATE OF SERVICE: 10/10/2024 CHIEF COMPLAINT: Acute alcohol intoxication and chronic alcoholism. HISTORY OF PRESENT ILLNESS: This gentleman is stable and doing well. PHYSICAL EXAMINATION: CHEST: Clear. CARDIAC: Normal. ABDOMEN: Soft, nontender. IMPRESSION: 1. Acute alcohol intoxication. 2. Chronic alcoholism. 3. Delirium tremens. PLAN: Discharge to [place] tomorrow. MMODL / IJN: [id number] /
--- NOTE | 2024-10-11 00:09 | PN ---
PROGRESS NOTE DATE OF SERVICE: 10/09/2024 CHIEF COMPLAINT: Acute alcohol intoxication and chronic alcoholism. HISTORY OF PRESENT ILLNESS: This gentleman is doing well. He is stable. He has not gotten the DTs at this point. PHYSICAL EXAMINATION: CHEST: Clear. CARDIAC: Normal. ABDOMEN: Soft, nontender. IMPRESSION: 1. Acute alcohol intoxication. 2. Chronic alcoholism. 3. History of narcotic addiction. PLAN: No change in program and stabilize the patient over the weekend prior to going to [place]. His liver enzymes also have to be followed. MMODL / IJN: [id number] /
[2024-10-11 07:46] VITALS: BP 149/103; PULSE 89; TEMP 98.2
--- NOTE | 2024-10-12 10:25 | DS ---
DISCHARGE SUMMARY CHIEF COMPLAINT: Acute alcohol intoxication and DTs. HISTORY OF PRESENT ILLNESS AND PHYSICAL EXAMINATION: Details of this man's history and physical can be found in the initial workup. LABORATORY STUDIES: While he is in the hospital, he had laboratory studies. Details of which can be found in the laboratory section of chart. COURSE IN THE HOSPITAL: After admission, he was placed on bedrest and started on intravenous fluids and watched and monitored for DTs. He was stable and had no difficulty. On the morning of the , he was discharged to [place]. FINAL DIAGNOSES: 1. Acute alcohol intoxication. 2. Chronic alcoholism. 3. Delirium tremens. 4. History of opioid addiction. OPERATIONS: None. CONSULTATIONS: None. MMODL / IJN: [id number] /
== END 2024-10-11 11:13 | disposition left against medical advice (07) ==
LOC: EC 14:55 → 4SSUR 17:09
PROVIDERS: ADMIT Family Medicine; ATTEND Family Medicine
DX: F10.231 Alcohol dependence with withdrawal delirium (principal); F10.229 Alcohol dependence with intoxication, unspecified; F17.210 Nicotine dependence, cigarettes, uncomplicated; Z79.01 Long term (current) use of anticoagulants; Z79.899 Other long term (current) drug therapy; Z89.612 Acquired absence of left leg above knee; Z87.898 Personal history of other specified conditions
CPT/HCPCS: 96376 ×4; 96375 ×2; 96361; 96374; 99285; 36415; 93005; 80053 ×2; 83690; 83735; 84100; 85025 ×2; 73130; G0378 ×4; G0480; J2060 ×2; J2405 ×2; J2470 ×3; 80320